=== PATIENT | male | born 1970 | race Caucasian/White ===

== ENCOUNTER 2017-12-02 14:52 | Emergency (ER) | payer OTHER, SELFPAY ==
[2017-12-02 15:18] VITALS: BP 142/88; PULSE 85; RESP 20; TEMP 37.2; O2SAT 97; BMI 36.9
--- NOTE | 2017-12-02 15:57 | HMH.EDUTC ---
[facility] [place] Disposition Clinical Impression: Viral upper respiratory illness Disposition: Home, Self-Care Condition on Discharge: Good Instructions: DI for Viral Upper Respiratory Infection -- Adult Additional Instructions: * Your symptoms are likely viral. An antibiotic will not make you feel better. Antibiotics are for bacterial infections. Viruses have to run their course with treating the symptoms. I understand you would prefer to have an antibiotic because you know your body and I will give you one only for that reason. Remember that as we discussed, antibiotics do come with side effects and risk including allergic reactions and resistance. Resistance to antibiotics can cause serious complications in the future if there is no antibiotic to treat an infection you have. Carefully consider this before starting antibiotics for symptoms that are likely viral. * No sign of bacterial infection. Likely viral. Virus can take 7-14 days to run their course * Monitor Temp. FU if fever, aches, chills develop * Encourage fluids, water, gatorade, powerade, pedialyte if infant/toddler/child * warm salt water gargles * warm fluids * sore throat lozenges * sleep elevated * humidifier/vaporizer * flonase 2 sprays each nostril daily but may take 2-3 days to notice improvement with it. * Once back home, follow up if symptoms persist. If still here visiting and symptoms get worse or new ones begin, you are welcome to return here. Prescriptions: Amoxicillin [Amoxicillin 500mg Cap] 500 mg PO TID #30 cap Time of Disposition: 16:06 Medical Decision Making Vital Signs: 12/02/17 15:18 Temperature 98.9 F Temperature Source Temporal Artery Scan Pulse Rate [Right Radial] 85 Respiratory Rate 20 Blood Pressure [Right Arm] 142/88 Blood Pressure Mean [Right Arm] 106 Blood Pressure Source [Right Arm] Automatic Cuff Blood Pressure Position [Right Arm] Sitting 02 Sat by Pulse Oximetry 97 Oxygen Delivery Method Room Air - Musa Inquiry Pt receiving controlled substance: No [facility] [place] HPI - General Stated complaint: Congestion Time Seen by Provider: 12/02/17 15:57 Mode of Arrival: Family Vehicle Source of Information: Patient Limitations: No Limitations Description of Symptoms (Recalled from Triage Doc. by RN): PT C/O COUGH AND CONGESTION FOR 2 WEEKS. PT HAS HAD SORE THROAT OFF AND ON. HEENT Symptoms (Recalled from RN notes): Yes (CONGESTION, SORE THROAT) Resp Symptoms (Recalled from RN notes): Yes (COUGH) Skin Symptoms (Recalled from RN notes): No MS Symptoms (Recalled from RN notes): No Functional Status (Recalled from RN notes): NA - History of Present Illness Provider Complaint: c/o a cold for two weeks that I can't shake . Rhinorrhea, mild cough and only AM scratchy throat for 2 weeks now. Knows he just needs an antibiotic. Reports he gets this once a year and when he can't shake it, the antibiotic fixes it. Minimal improvement with tylenol cold and flu. Currently in town visiting due to a sick father in law. - Related Data Home Medications Medication Instructions Recorded Confirmed Amlodipine Besylate [Norvasc 10mg 10 mg PO DAILY 12/02/17 12/02/17 tablet] Benazepril HCl [Benazepril HCl] 20 mg PO DAILY 12/02/17 12/02/17 Citalopram Hydrobromide [Celexa 20 mg PO DAILY 12/02/17 12/02/17 20mg Tablet] Previous Rx's Medication Instructions Recorded Amoxicillin [Amoxicillin 500mg 500 mg PO TID #30 cap 12/02/17 Cap] Allergies Allergy/AdvReac Type Severity Reaction Status Date / Time No Known Allergies Allergy Verified 12/02/17 15:28 - Worker's Comp Is this a Worker's Comp case?: No [facility] History I have reviewed the patient's past medical history: Yes Medical History: Reports:: Hypertension Denies:: Cancer, Chronic Obstructive Pulmonary Disease (COPD), Diabetes Mellitus Type 1, Diabetes Mellitus Type 2, MRSA Other Surgeries: Yes: No Previous Surgery Amputation: No - *Social History Smoking Status:
--- NOTE | 2017-12-02 16:04 | ED_ITS ---
[facility] [place] Disposition Clinical Impression: Viral upper respiratory illness Disposition: Home, Self-Care Condition on Discharge: Good Instructions: DI for Viral Upper Respiratory Infection -- Adult Additional Instructions: * Your symptoms are likely viral. An antibiotic will not make you feel better. Antibiotics are for bacterial infections. Viruses have to run their course with treating the symptoms. I understand you would prefer to have an antibiotic because you know your body and I will give you one only for that reason. Remember that as we discussed, antibiotics do come with side effects and risk including allergic reactions and resistance. Resistance to antibiotics can cause serious complications in the future if there is no antibiotic to treat an infection you have. Carefully consider this before starting antibiotics for symptoms that are likely viral. * No sign of bacterial infection. Likely viral. Virus can take 7-14 days to run their course * Monitor Temp. FU if fever, aches, chills develop * Encourage fluids, water, gatorade, powerade, pedialyte if infant/toddler/ child * warm salt water gargles * warm fluids * sore throat lozenges * sleep elevated * humidifier/vaporizer * flonase 2 sprays each nostril daily but may take 2-3 days to notice improvement with it. * Once back home, follow up if symptoms persist. If still here visiting and symptoms get worse or new ones begin, you are welcome to return here. Prescriptions: Amoxicillin [Amoxicillin 500mg Cap] 500 mg PO TID #30 cap Time of Disposition: 16:06 Medical Decision Making Vital Signs: 12/02/17 15:18 Temperature 98.9 F Temperature Source Temporal Artery Scan Pulse Rate [Right Radial] 85 Respiratory Rate 20 Blood Pressure [Right Arm] 142/88 Blood Pressure Mean [Right Arm] 106 Blood Pressure Source [Right Arm] Automatic Cuff Blood Pressure Position [Right Arm] Sitting 02 Sat by Pulse Oximetry 97 Oxygen Delivery Method Room Air - Musa Inquiry Pt receiving controlled substance: No [facility] [place] HPI - General Stated complaint: Congestion Time Seen by Provider: 12/02/17 15:57 Mode of Arrival: Family Vehicle Source of Information: Patient Limitations: No Limitations Description of Symptoms (Recalled from Triage Doc. by RN): PT C/O COUGH AND CONGESTION FOR 2 WEEKS. PT HAS HAD SORE THROAT OFF AND ON. HEENT Symptoms (Recalled from RN notes): Yes (CONGESTION, SORE THROAT) Resp Symptoms (Recalled from RN notes): Yes (COUGH) Skin Symptoms (Recalled from RN notes): No MS Symptoms (Recalled from RN notes): No Functional Status (Recalled from RN notes): NA - History of Present Illness Provider Complaint: c/o a cold for two weeks that I can't shake . Rhinorrhea, mild cough and only AM scratchy throat for 2 weeks now. Knows he just needs an antibiotic. Reports he gets this once a year and when he can't shake it, the antibiotic fixes it. Minimal improvement with tylenol cold and flu. Currently in town visiting due to a sick father in law. - Related Data Home Medications Medication Instructions Recorded Confirmed Amlodipine Besylate [Norvasc 10mg 10 mg PO DAILY 12/02/17 12/02/17 tablet] Benazepril HCl [Benazepril HCl] 20 mg PO DAILY 12/02/17 12/02/17 Citalopram Hydrobromide [Celexa 20 mg PO DAILY 12/02/17 12/02/17 20mg Tablet] Previous Rx's Medication Instructions Recorded Amoxicillin [Amoxicillin 500mg 500 mg PO TID #30 cap
[2017-12-02 16:07] VITALS: BP 138/88; PULSE 79; RESP 22; TEMP 37.1; O2SAT 99
== END 2017-12-02 16:09 | disposition home or self-care (01) ==
PROVIDERS: Emergency Provider Nurse Practitioner Family
DX: J06.9 Acute upper respiratory infection, unspecified (principal)
CPT/HCPCS: 99201